=== PATIENT | female | born 1945 | race Caucasian/White ===

== ENCOUNTER 2021-09-29 11:40 | Inpatient (IN) | payer MEDICARE, OTHER ==
[~2021-09-29] VITALS: Ht 167.6 cm; Wt 68.7 kg
[2021-09-29] MEDS ORDERED: DESVENLAFAXINE100 M3 PO (11:55)
[2021-09-29] MEDS ORDERED: PROP10 PO (11:56)
[2021-09-29] MEDS ORDERED: QUETIAPINE FUMA50 M8 PO (11:56)
[2021-09-29] MEDS ORDERED: PREGABALIN50 MG PO (11:56)
[2021-09-29] MEDS ORDERED: LOSA25 (11:56)
[2021-09-29 11:59] LABS: PO2 Arterial 78.1 mmHg (80-100); pH Blood Arterial 7.51 (7.35-7.45)
[2021-09-29 12:05] LABS: Calcium, Ionized (POC) 1.01 mmol/L (1.10-1.46); Chloride (POC) 89 mmol/L (98-108); Creatinine (POC) 2.2 mg/dL (0.6-1.0); Glucose (ISTAT POC) 136 mg/dL (70-99); Hemoglobin (POC) 15.3 g/dL (12.0-16.0); Potassium (POC) 3.8 mmol/L (3.5-5.5); Sodium (POC) 130 mmol/L (135-148); Total CO2 (POC) 30 mmol/L (21-32)
[2021-09-29 12:15] LABS: BASOPHILS ABSOLUTE AUTO 0.05 K/mm3 (0.00-0.23); BASOPHILS PERCENT AUTO 2 % (0-2); Hematocrit 43.9 % (33.0-51.0); Hemoglobin 14.7 g/dL (11.5-16.0); LYMPHOCYTES ABSOLUTE AUTO 0.56 K/mm3 (0.84-5.20); LYMPHOCYTES PERCENT AUTO 20 % (21-46); MONOCYTES ABSOLUTE AUTO 0.23 K/mm3 (0.16-1.47); MONOCYTES PERCENT AUTO 8 % (4-13); Mean Corpuscular HGB 31.5 pg (26.0-34.0); Mean Corpuscular HGB Conc 33.5 g/dL (31.5-36.5); Mean Corpuscular Volume 94 fL (80-100); Mean Platelet Volume 10.6 fL (9.1-12.4); Platelet Count 275 K/mm3 (150-400); RDW Coefficient Variation 13.1 % (11.7-14.2); RDW Standard Deviation 45.2 fL (35.1-46.3); Red Blood Cell Count 4.66 M/mm3 (3.80-5.20); White Blood Cell Count 2.79 K/mm3 (4.00-11.30)
[2021-09-29 12:24] LABS: EOSINOPHILS PERCENT AUTO 0 % (0-6); IMMATURE GRAN ABSOLUTE AUTO 0.02 K/mm3 (0.00-0.10); IMMATURE GRAN PERCENT AUTO 1 % (0-1); NEUTROPHILS ABSOLUTE AUTO 1.93 K/mm3 (1.96-9.15); NEUTROPHILS PERCENT AUTO 69 % (41-73)
[2021-09-29 12:34] LABS: Albumin, Blood 3.2 g/dL (3.4-5.0); Albumin/Globulin Ratio 0.7 (0.8-1.8); Calcium, Blood 9.7 mg/dL (8.5-10.1); Creatinine, Blood 1.91 mg/dL (0.40-1.00); Globulin, Blood 4.4 g/dL (2.2-4.0); Potassium, Blood 3.8 mmol/L (3.5-5.5); Total Protein, Blood 7.6 g/dL (6.4-8.2)
[2021-09-29 13:04] LABS: BAND PERCENT MAN 35 % (0-8); BASOPHILS PERCENT MAN 0 % (0-2); EOSINOPHILS ABSOLUTE MAN 0.02 K/mm3 (0.00-0.68); EOSINOPHILS PERCENT MAN 1 % (0-6); LYMPHOCYTES ABSOLUTE MAN 0.66 K/mm3 (0.84-5.20); LYMPHOCYTES PERCENT MAN 24 % (21-46); MONOCYTES ABSOLUTE MAN 0.16 K/mm3 (0.16-1.47); MONOCYTES PERCENT MAN 6 % (4-13); MYELOCYTE ABSOLUTE MAN 0.13 K/mm3 (0.00-0.00); MYELOCYTE PERCENT MAN 5 % (0-0); NEUTROPHILS ABSOLUTE MAN 1.78 K/mm3 (1.96-9.15); SEG NEUTROPHILS PERCENT MAN 29 % (41-73); TOTAL CELLS COUNTED 100
[2021-09-29 14:20] LABS: Influenza A, PCR NEGATIVE (NEGATIVE); Influenza B, PCR NEGATIVE (NEGATIVE); Resp Syncytial Virus, PCR NEGATIVE (NEGATIVE); SARS-Cov-2 (COVID-19) PCR, MMC NEGATIVE (NEGATIVE)
[2021-09-29 15:44] LABS: International Normalized Ratio 1.07; Prothrombin Time Results 11.2 Sec (9.7-11.5)
--- NOTE | 2021-09-29 18:03 | NUR ---
Telephone report received from Radha ALLISON. Anticipate arrival of pt from ED to PCU 14 shortly.
--- NOTE | 2021-09-29 18:59 | NUR ---
PATIENT BEING TRANSPORTED TO SURGERY COMING ONTO SHIFT.
--- NOTE | 2021-09-29 19:03 | NUR ---
PT arrived from the ED, incontinent of large amount of brown liquid stool. She is alert and oriented but appears sleepy. Her sister Xochitl, "Lisa" is at the bedside. Vital signs taken,98.5 tympanic temperature, sinus rhythm at 91 bpm, RR 28/minute and blood pressure 96/47 MAP of 60. Spo2 88-90% on 14 l/min oxymizer delivery. Pt has a very weak coarse sounding wet cough. IV fluids were initiated as ordered, Lactated Ringers, and blood pressure improved to 102 systolic. Non-rebreather mask applied over the oxymizer and spo2 improved to 96-97%. Jose D Galan RN arrived from surgery to take the pt to the ED.
--- NOTE | 2021-09-29 22:15 | NUR ---
ASSESSMENT/ASSUMED CARE PT ARRIVED FROM PACU VIA BED. STAFF TRANSFERED OVER TO ICU BED WITH SLIDER SHEET. PT AWAKE, DENIES PAIN. ASSISTING WITH TURNING. LUNGS CLEAR BUT DECREASED ON 10 LITER VIA NRB. CHANGED PT OVER TO OXMIZER AND DECREASED DOWN TO 8 LITERS. MONITOR TO KEEP SPO2 GREATER THAN 90%. ENCOURAGED PT TO C&DB, EXPLAINED SPLINTING TO ABD WITH PILLOW. PT DENIES SOB. HEART RATE REGULAR. BP HYPOTENSIVE WILL START LEVOPHED. PT ON LR AT 100 ML/HR VIA LEFT AC IV. BT HYPOACTIVE. ABD SOFT AND NONTENDER. DENIES N/V. NG TO LIS WITH GREEN LIQUID DRAINING. ABD WITH 2 GUAZE DRSG TO MIDLINE UPPER ABD AND MIDLINE LOWER ABD. BOTH CD&I. DE LEON CATH PATENT DRAINING DARK MEGHAN URINE. IV 22G TO RIGHT WRIST SALINE LOCKED, SITE CLEAR, FLUSHED WITHOUT DIFFICULTY. IV 20G TO LEFT AC WITH LR AT 100 ML/HR, SITE CLEAR.
[2021-09-30 03:54] LABS: Hematocrit 38.3 % (33.0-51.0); Mean Corpuscular HGB 32.3 pg (26.0-34.0); Mean Corpuscular HGB Conc 33.9 g/dL (31.5-36.5); Mean Corpuscular Volume 95 fL (80-100); Mean Platelet Volume 10.4 fL (9.1-12.4); Platelet Count 204 K/mm3 (150-400); RDW Coefficient Variation 13.4 % (11.7-14.2); RDW Standard Deviation 47.2 fL (35.1-46.3); Red Blood Cell Count 4.03 M/mm3 (3.80-5.20)
[2021-09-30 03:58] LABS: Bicarbonate Venous 28.1 mmol/L (24.0-30.0); PCO2 Venous 49.7 mmHg (38-42); PO2 Venous 36.3 mmHg (38-42)
[2021-09-30 04:18] LABS: Albumin, Blood 2.5 g/dL (3.4-5.0); Albumin/Globulin Ratio 0.7 (0.8-1.8); Bilirubin, Total 0.6 mg/dL (0.1-1.0); Bun/Creatinine Ratio 38.5 (12.0-20.0); Calcium, Blood 8.6 mg/dL (8.5-10.1); Creatinine, Blood 1.43 mg/dL (0.40-1.00); Globulin, Blood 3.8 g/dL (2.2-4.0); Potassium, Blood 3.4 mmol/L (3.5-5.5); Total Protein, Blood 6.3 g/dL (6.4-8.2)
[2021-09-30 04:25] LABS: BAND PERCENT MAN 50 % (0-8); BASOPHILS PERCENT MAN 0 % (0-2); EOSINOPHILS PERCENT MAN 0 % (0-6); LYMPHOCYTES ABSOLUTE MAN 0.55 K/mm3 (0.84-5.20); LYMPHOCYTES PERCENT MAN 5 % (21-46); METAMYELOCYTE ABSOLUTE MAN 0.66 K/mm3 (0.00-0.00); METAMYELOCYTE PERCENT MAN 6 % (0-0); MONOCYTES ABSOLUTE MAN 0.44 K/mm3 (0.16-1.47); MONOCYTES PERCENT MAN 4 % (4-13); MYELOCYTE ABSOLUTE MAN 0.33 K/mm3 (0.00-0.00); MYELOCYTE PERCENT MAN 3 % (0-0); SEG NEUTROPHILS PERCENT MAN 32 % (41-73); TOTAL CELLS COUNTED 100
--- NOTE | 2021-09-30 05:30 | NUR ---
SHIFT SUMMARY PT RESTING QUIETLY. O2 REQUIREMENTS DOWN DURING THE NIGHT FROM 10 LITERS OXMIZER TO 4 LITER VIA N/C. DENIES SOB. ENCOURAGED TO USE IS AND TO DO COUGHING AND DEEP BREATHING WHILE SPLINTING ABD. PT DENIES PAIN OR DISCOMFORT. HEART RATE REGULAR. PT HAS BEEN WEANED OFF LEVOPHED, MONITOR TO KEEP MAP GREATER THAN 65. BT HYPOACTIVE. NO N/V. NG TO LIS WITH GREEN BILE OUTPUT. DE LEON CATH PATENT, URINE IS ACCOUNTANT CERTIFIED PUBLIC THIS AM. PT TURNING Q2HR. POSSIBLE STATUS CHANGE TODAY. REPORT TO ON COMING NURSE.
--- NOTE | 2021-09-30 08:07 | NUR ---
ASSUMED PT CARE. PT A/OX4, CALM, DENIES PAIN OR SOB. VSS. LUNGS CLEAR/DIM IN BASES. REINFORCED TEACHING ON IMPORTANCE OF DEEP BREATH/COUGHING WITH ABD SPLINT, USING IS, ETC TO OPTIMIZE LUNG HEALTH. ABD SOFT, 2 LAP SITES CDI, BT HYPOACTIVE. MD CUEVAS IN TO SEE PT. NGT DC PER ORDER. BEDSIDE SWALLOW, PT PASSED WITHOUT ISSUE.
--- NOTE | 2021-09-30 10:57 | NUR ---
DISCUSSED WITH MD KINSEY THAT PT REPORTS HAVING TO STRAIN TO HAVE BM, AND REPORTS THAT SHE DIGITALLY DISIMPACTS HERSELF. REQUEST FOR STOOL SOFTENERS TO BE ADDED TO MEDICATION REGIMEN. MD STATES PT OK TO TRANSFER TO SURGICAL FLOOR, ORDERS UPDATED.
--- NOTE | 2021-09-30 11:24 | NUR ---
PT TO TRANSFER TO SURGICAL UNIT. REPORT GIVEN TO FNP WHO WILL BE RECEIVING PT.
--- NOTE | 2021-09-30 13:56 | NUR ---
PT ASSISTED UP TO CHAIR FOR LUNCH WITH FWW AND 2 PERSON ASSIST, TOLERATED WELL. PT TAKEN TO SURGICAL FLOOR AT 1355 VIA WC. VSS.
--- NOTE | 2021-09-30 16:33 | NUR ---
PT WAS ALERT AND ORIENTED ON ARRIVAL. SHE IS A 1-2 PERSON ASSIST. PT WAS ON 3 L OF OXYGEN PER NASAL CANNULA AND HAD DE LEON CATHETER IN PLACE. HEARING AID WAS WITH PT, BUT SHE WAS NOT WEARING IT.
--- NOTE | 2021-09-30 17:50 | NUR ---
SHIFT SUMMARY PT ARRIVED ALERT AND ORIENTED WITH 3 L OF OXYGEN PER NASAL CANNULA AND A DE LEON CATHETER. SHE IS A 1-2 PERSON ASSIST. PT SHOULD BE WEARING HER HEARING AID BUT STATES THAT HER SISTER TOOK IT HOME TO REPLACE IT WITH NEW BATTERIES AND WILL BRING IT BACK TOMORROW. PT HAD A BOWEL MOVEMENT THAT PRODUCED LOOSE AND WATERY STOOLS. SOME STOOL GOT ON THE DRESSING ON THE RIGHT LOWER ABDOMEN/GROIN AREA, AND THE DRESSING WAS REPLACED.
--- NOTE | 2021-10-01 04:18 | NUR ---
SHIFT SUMMARY POD1 EX LAP W/HERNIA REPAIR. 2X INCISIONS WITH GAUZE AND TAPE, C/D/I. VITAL SIGNS STABLE. TOLERATING CLEAR LIQ DIET. DE LEON PATENT DRAINING CLEAR YELLOW URINE. BOWEL MOVEMENT LAST SHIFT AND PASSING FLATUS. WILL REPORT TO ONCOMING RN.
[2021-10-01 04:47] LABS: Hematocrit 31.9 % (33.0-51.0); Hemoglobin 10.8 g/dL (11.5-16.0); LYMPHOCYTES ABSOLUTE AUTO 0.75 K/mm3 (0.84-5.20); LYMPHOCYTES PERCENT AUTO 4 % (21-46); MONOCYTES ABSOLUTE AUTO 1.02 K/mm3 (0.16-1.47); MONOCYTES PERCENT AUTO 6 % (4-13); Mean Corpuscular HGB 31.6 pg (26.0-34.0); Mean Corpuscular HGB Conc 33.9 g/dL (31.5-36.5); Mean Corpuscular Volume 93 fL (80-100); Mean Platelet Volume 10.6 fL (9.1-12.4); NRBC ABSOLUTE 0.02 K/mm3 (0.00-0.02); NRBC Auto 0.1 /100 WBC (0.0-0.2); Platelet Count 187 K/mm3 (150-400); RDW Coefficient Variation 13.6 % (11.7-14.2); RDW Standard Deviation 47.2 fL (35.1-46.3); Red Blood Cell Count 3.42 M/mm3 (3.80-5.20); White Blood Cell Count 17.41 K/mm3 (4.00-11.30)
[2021-10-01 04:52] LABS: BASOPHILS ABSOLUTE AUTO 0.01 K/mm3 (0.00-0.23); BASOPHILS PERCENT AUTO 0 % (0-2); EOSINOPHILS ABSOLUTE AUTO 0.06 K/mm3 (0.00-0.68); EOSINOPHILS PERCENT AUTO 0 % (0-6); IMMATURE GRAN ABSOLUTE AUTO 0.64 K/mm3 (0.00-0.10); IMMATURE GRAN PERCENT AUTO 4 % (0-1); NEUTROPHILS ABSOLUTE AUTO 14.93 K/mm3 (1.96-9.15); NEUTROPHILS PERCENT AUTO 86 % (41-73)
[2021-10-01 05:08] LABS: Alanine Aminotransfer (ALT/SGP 16 U/L (12-78); Albumin/Globulin Ratio 0.6 (0.8-1.8); Alk Phos 80 U/L (50-136); Anion Gap 5 mmol/L (6-16); Aspartate Aminotrans (AST/SGOT 16 U/L (12-37); Bilirubin, Total 0.4 mg/dL (0.1-1.0); Blood Urea Nitrogen 31 mg/dL (8-24); Bun/Creatinine Ratio 34.4 (12.0-20.0); CO2, Blood 30 mmol/L (21-32); Calcium, Blood 8.2 mg/dL (8.5-10.1); Chloride, Blood 100 mmol/L (98-108); Globulin, Blood 3.6 g/dL (2.2-4.0); Glomerular Filtration Rate >60 (60-); Glucose, Blood 111 mg/dL (70-99); Potassium, Blood 3.3 mmol/L (3.5-5.5); Sodium, Blood 135 mmol/L (136-145); Total Protein, Blood 5.6 g/dL (6.4-8.2)
[2021-10-01 05:32] LABS: BAND PERCENT MAN 12 % (0-8); BASOPHILS PERCENT MAN 0 % (0-2); EOSINOPHILS PERCENT MAN 0 % (0-6); LYMPHOCYTES ABSOLUTE MAN 1.04 K/mm3 (0.84-5.20); LYMPHOCYTES PERCENT MAN 6 % (21-46); MONOCYTES ABSOLUTE MAN 1.21 K/mm3 (0.16-1.47); MONOCYTES PERCENT MAN 7 % (4-13); NEUTROPHILS ABSOLUTE MAN 15.14 K/mm3 (1.96-9.15); SEG NEUTROPHILS PERCENT MAN 75 % (41-73); TOTAL CELLS COUNTED 100
--- NOTE | 2021-10-01 17:54 | NUR ---
SHIFT SUMMARY PT A&OX4, VSS/2LNC, DENIES PAIN, DENIES N&V, NELIDA FULL LIQUID DIET, DE LEON OUT AT 1550/AWAITING POST REMOVAL VOID. POD2 EXP LAP/HERNIA REP, 2 GAUZE/TAPE DRY INTACT, MILD ABD DISTENSION, PASSING FLATUS & BMS. P.T. EVAL'D; UP TO CHAIR T/O SHIFT; STAND/PIVOT W/FWW & GB TO BED/CHAIR. DEEP BREATHING AND I.S. EDU/ENC/DEMONSTRATED. WILL REPORT TO NEXT RN.
--- NOTE | 2021-10-01 20:02 | NUR ---
CALLED DR. WATERS. PT WAS HAVING A TACHY CARDIAC EPISODE AT 140'S FOR ATLEAST 20 MINUTES. EKG WAS DONE. SINUS TACH TO SUPRAVENTRICULAR TACHY FOR 20 SECS THEN CONVERTED BACK TO NORMAL SINUS RHYTHYM WITH NON SPECIFIC ST ABNORMALITY. PER DR. WATERS, HE WILL WRITE ORDERS. PT DENIES CHEST PAIN. COMFORTABLE IN BED. NEW IV IS BEING PLACED AT THE MOMENT. OLD IV IS NOT PATENT. LEONOR ALLISON - CLINICAL COORDINATOR IN ROOM WITH PT.
[2021-10-02 05:18] LABS: Hematocrit 29.8 % (33.0-51.0); Hemoglobin 10.1 g/dL (11.5-16.0); Mean Corpuscular HGB 31.9 pg (26.0-34.0); Mean Corpuscular HGB Conc 33.9 g/dL (31.5-36.5); Mean Corpuscular Volume 94 fL (80-100); Platelet Count 190 K/mm3 (150-400); RDW Coefficient Variation 13.6 % (11.7-14.2); RDW Standard Deviation 47.1 fL (35.1-46.3); Red Blood Cell Count 3.17 M/mm3 (3.80-5.20); White Blood Cell Count 19.99 K/mm3 (4.00-11.30)
[2021-10-02 05:41] LABS: Alanine Aminotransfer (ALT/SGP 16 U/L (12-78); Albumin, Blood 1.8 g/dL (3.4-5.0); Albumin/Globulin Ratio 0.6 (0.8-1.8); Alk Phos 104 U/L (50-136); Anion Gap 6 mmol/L (6-16); Aspartate Aminotrans (AST/SGOT 16 U/L (12-37); Bilirubin, Total 0.4 mg/dL (0.1-1.0); Blood Urea Nitrogen 19 mg/dL (8-24); CO2, Blood 29 mmol/L (21-32); Calcium, Blood 7.6 mg/dL (8.5-10.1); Chloride, Blood 100 mmol/L (98-108); Creatinine, Blood 0.76 mg/dL (0.40-1.00); Globulin, Blood 3.1 g/dL (2.2-4.0); Glomerular Filtration Rate >60 (60-); Glucose, Blood 101 mg/dL (70-99); Magnesium, Blood 2.6 mg/dL (1.6-2.4); Sodium, Blood 135 mmol/L (136-145); Total Protein, Blood 4.9 g/dL (6.4-8.2)
--- NOTE | 2021-10-02 06:03 | NUR ---
SHIFT SUMMARY PT ORIENTED X3, APPEARS TO BE DROWSY. PT DENIES PAIN. NO PAIN MEDS GIVEN OVERNIGHT. LUNGS ARE DIMINISHED. ENC DEEP BREATHING/COUGH EXERCISE AND USE OF I/S. PT DENIES CHEST PAIN AND SOB. VSS. PT HAD A TACHY EPISODE INTERMINTENTLY, HAD TO CALL DR. WATERS LAST NIGHT DUE TO HR ON 140'S. EKG WAS TAKEN. TELE IN PLACED, AFIB ON 80'S. PT HAD 1 LOOSE BM LAST NIGHT. TRANSFERED IN BSC WITH FWW AND GB. PT WEARS CPAP AT SLEEP, BUT FELT UNCOMFORTABLE THIS MORNING, PREFER TO USE N/C O2. PT ON 3L AT SLEEP SATURATING AT 91%-95%. NEW IV PLACED ON R ARM. CALL LIGHT WITHIN REACH. WILL PROVIDE REPORT TO ONCOMING NURSE.
[2021-10-02 06:53] LABS: BAND PERCENT MAN 20 % (0-8); BASOPHILS PERCENT MAN 0 % (0-2); EOSINOPHILS ABSOLUTE MAN 0.19 K/mm3 (0.00-0.68); EOSINOPHILS PERCENT MAN 1 % (0-6); LYMPHOCYTES ABSOLUTE MAN 1.19 K/mm3 (0.84-5.20); LYMPHOCYTES PERCENT MAN 6 % (21-46); MONOCYTES ABSOLUTE MAN 0.99 K/mm3 (0.16-1.47); MONOCYTES PERCENT MAN 5 % (4-13); MYELOCYTE ABSOLUTE MAN 0.19 K/mm3 (0.00-0.00); MYELOCYTE PERCENT MAN 1 % (0-0); NEUTROPHILS ABSOLUTE MAN 17.39 K/mm3 (1.96-9.15); SEG NEUTROPHILS PERCENT MAN 67 % (41-73); TOTAL CELLS COUNTED 100
--- NOTE | 2021-10-02 15:39 | NUR ---
SHIFT SUMMARY PT A&OX3, SLEEPY TODAY, FOLLOWS DIRECTIONS, PLEASANT & COOPERATIVE WITH CARE, [employer] [place] (HEARING AIDS IN CUP AT BEDSIDE. POD3 EXP LAP/HERNIA REPAIR, DRESSINGS DRY/INTACT. DENIES PAIN. DENIES N&V, NELIDA PO. BIOX ON, 3LNC, TELE ST@103 BPM. STAND PIVOT WITH SBA/FWW/GB TO BSC/CHAIR/BED. ATTENDS ON FOR LEAKAGE OF BOWEL AND BLADDER, USES BEDSIDE COMMODE, MULTIPLE LOOSE BM TODAY. WILL REPORT TO NEXT RN.
[2021-10-03 04:29] LABS: Hematocrit 31.2 % (33.0-51.0); Hemoglobin 10.3 g/dL (11.5-16.0); Mean Corpuscular HGB 31.2 pg (26.0-34.0); Mean Corpuscular Volume 95 fL (80-100); Mean Platelet Volume 10.5 fL (9.1-12.4); Platelet Count 193 K/mm3 (150-400); RDW Coefficient Variation 13.9 % (11.7-14.2); RDW Standard Deviation 48.8 fL (35.1-46.3); White Blood Cell Count 16.87 K/mm3 (4.00-11.30)
[2021-10-03 04:48] LABS: Alanine Aminotransfer (ALT/SGP 20 U/L (12-78); Albumin, Blood 1.9 g/dL (3.4-5.0); Albumin/Globulin Ratio 0.5 (0.8-1.8); Alk Phos 111 U/L (50-136); Anion Gap 6 mmol/L (6-16); Aspartate Aminotrans (AST/SGOT 21 U/L (12-37); Bilirubin, Total 0.5 mg/dL (0.1-1.0); Blood Urea Nitrogen 16 mg/dL (8-24); Bun/Creatinine Ratio 23.3 (12.0-20.0); CO2, Blood 28 mmol/L (21-32); Calcium, Blood 8.1 mg/dL (8.5-10.1); Chloride, Blood 101 mmol/L (98-108); Creatinine, Blood 0.69 mg/dL (0.40-1.00); Globulin, Blood 3.5 g/dL (2.2-4.0); Glomerular Filtration Rate >60 (60-); Glucose, Blood 108 mg/dL (70-99); Potassium, Blood 3.8 mmol/L (3.5-5.5); Sodium, Blood 135 mmol/L (136-145); Total Protein, Blood 5.4 g/dL (6.4-8.2)
--- NOTE | 2021-10-03 05:18 | NUR ---
SHIFT SUMMARY POD4 HERNIA REPAIR FEMORAL/INCARCERATED WITH DR. CUEVAS. PT STILL APPEARS LETHARGIC BUT IT HAS SOME MILD IMPROVEMENT COMPARED THE NIGHT BEFORE LAST NIGHT. I HAD ENCOURAGE HER TO OPEN HER EYES DURING A CONVERSATION LAST NIGHT. THIS MORNING SHE HAD TO GET UP IN THE BSC. TOLERATING THE TRANSFER WITH 1 SBA. APPEARS TO BE WEAK. SHE WAS ABLE TO MAKE SENSIBLE CONVERSATION WITH EYES OPEN COUPLE COUPLE TIMES OVERNIGHT. I ENCOURAGE HER TO TAKE DEEP BREATHS, COUGHING AND I/S, EXPLAINED AND EDUCATE ABOUT RISK FOR WORSENING PNEUMONIA. PT WAS RECEPTIVE BUT SOMETIMES WOULD REFUSE TO COOPERATE STATING "IF I HAVE TO DO IT AGAIN, IT HURTS." SHE HAD A FULL BED BATH.
[2021-10-03 05:51] LABS: BAND PERCENT MAN 12 % (0-8); BASOPHILS PERCENT MAN 0 % (0-2); EOSINOPHILS ABSOLUTE MAN 1.01 K/mm3 (0.00-0.68); EOSINOPHILS PERCENT MAN 6 % (0-6); LYMPHOCYTES ABSOLUTE MAN 0.33 K/mm3 (0.84-5.20); LYMPHOCYTES PERCENT MAN 2 % (21-46); METAMYELOCYTE ABSOLUTE MAN 0.16 K/mm3 (0.00-0.00); METAMYELOCYTE PERCENT MAN 1 % (0-0); MONOCYTES ABSOLUTE MAN 0.67 K/mm3 (0.16-1.47); MONOCYTES PERCENT MAN 4 % (4-13); MYELOCYTE ABSOLUTE MAN 0.33 K/mm3 (0.00-0.00); MYELOCYTE PERCENT MAN 2 % (0-0); NEUTROPHILS ABSOLUTE MAN 14.33 K/mm3 (1.96-9.15); SEG NEUTROPHILS PERCENT MAN 73 % (41-73); TOTAL CELLS COUNTED 100
--- NOTE | 2021-10-03 10:43 | NUR ---
PRODUCTIVE COUGH PT HAS WEAK COUGH, THICK BROWNISH SPUTUM
--- NOTE | 2021-10-03 11:43 | NUR ---
PT APPEARS CONFUSED AT TIMES WHEN IN ROOM, PT STATED "THE PHOTOS ARE NOT GOOD" OUT OF CONTEXT TO CONVERSATION. BUT WHEN ASKED IF KNEW WHERE SHE WAS, STATED "I'M IN THE HOSPITAL, SITTING ON THE POT" (PT ON BSC AT TIME). USING TAB ALARM FOR SAFETY. CALL LIGHT IN REACH. PT SITTING UP IN RECLINER.
--- NOTE | 2021-10-03 14:20 | NUR ---
FAMILY MEMBER IN TO VISIT
--- NOTE | 2021-10-03 15:42 | NUR ---
ADDED HUMIDIFICATION TO 02 TUBING. PT HAD SLIGHT BLOODY NOSE. ADDED HUMIDIFICATION TO 02 TUBING.
--- NOTE | 2021-10-03 17:52 | NUR ---
SUMMARY PT DESATS WHEN REMOVES O2 TO MID-HIGH 80S. PLACED HUMIDIFICATION TO 02 FOR COMFORT. PT HAD SLIGHT BLOODY NOSE. PT CONFUSED AT TIMES, SEEMS MORE ORIENTED THIS AFTERNOON/EVENING AND SLIGHTLY LESS LETHARGIC. INCONTINENT OF URINE AND STOOL AT TIMES. ADMINISTERED MEDS PER ORDERS. CALL LIGHT IN REACH, PT USES APPROPRIATELY. BED ALARM ON.
--- NOTE | 2021-10-03 19:05 | NUR ---
REPORT GIVEN TO ONCOMING SHIFT.
[2021-10-04 05:33] LABS: BASOPHILS ABSOLUTE AUTO 0.04 K/mm3 (0.00-0.23); BASOPHILS PERCENT AUTO 0 % (0-2); EOSINOPHILS PERCENT AUTO 2 % (0-6); Hematocrit 32.4 % (33.0-51.0); Hemoglobin 10.8 g/dL (11.5-16.0); IMMATURE GRAN ABSOLUTE AUTO 0.75 K/mm3 (0.00-0.10); IMMATURE GRAN PERCENT AUTO 5 % (0-1); LYMPHOCYTES PERCENT AUTO 5 % (21-46); MONOCYTES ABSOLUTE AUTO 1.07 K/mm3 (0.16-1.47); MONOCYTES PERCENT AUTO 7 % (4-13); Mean Corpuscular HGB 30.9 pg (26.0-34.0); Mean Corpuscular HGB Conc 33.3 g/dL (31.5-36.5); Mean Corpuscular Volume 93 fL (80-100); Mean Platelet Volume 10.4 fL (9.1-12.4); NEUTROPHILS ABSOLUTE AUTO 11.94 K/mm3 (1.96-9.15); NEUTROPHILS PERCENT AUTO 80 % (41-73); Platelet Count 221 K/mm3 (150-400); RDW Coefficient Variation 13.7 % (11.7-14.2); RDW Standard Deviation 46.6 fL (35.1-46.3); Red Blood Cell Count 3.49 M/mm3 (3.80-5.20)
--- NOTE | 2021-10-04 06:12 | NUR ---
PT IS A/OX1-2. CONFUSED. [place]. BED ALARM ON. NO EVENTS OVERNIGHT. TOLERATING FL DIET WELL. DENIED ANY N/V. ABD SOFTLY DISTENDED, DENIED TENDERNESS. S/P LAP REPAIR W/MESH FOR SBO W/INCARCERTED FEMORAL HERNIA. LAP SITES CDI. TELE: SR. CPAP APPLIED PER RT, BUT PT REFUSED TO KEEP CPAP ON. OXYGEN AT 3L PER NC. INS/EXP WHEEZING NOTED. HAS PRODUCTIVE COUGH W/YELLOW-BROWN SPUTUM. CONT PULSE ON, PLACED ON TOE.
[2021-10-04 06:37] LABS: Anion Gap 9 mmol/L (6-16); Blood Urea Nitrogen 10 mg/dL (8-24); CO2, Blood 29 mmol/L (21-32); Calcium, Blood 8.4 mg/dL (8.5-10.1); Chloride, Blood 97 mmol/L (98-108); Creatinine, Blood 0.67 mg/dL (0.40-1.00); Glomerular Filtration Rate >60 (60-); Glucose, Blood 93 mg/dL (70-99); Potassium, Blood 3.5 mmol/L (3.5-5.5); Sodium, Blood 135 mmol/L (136-145)
--- NOTE | 2021-10-04 09:30 | NUR ---
therapy in with patient
--- NOTE | 2021-10-04 10:29 | NUR ---
PT HAD 11 BEAT RUN SVT PER TELE THEN RETURNED TO 80S. ADMINISTERED PROPANOLOL AND POTASSIUM PER ORDERS. NOTIFIED DR KINSEY. NO OTHER ORDERS.
[2021-10-04 11:42] LABS: Influenza A, PCR NEGATIVE (NEGATIVE); Influenza B, PCR NEGATIVE (NEGATIVE); Resp Syncytial Virus, PCR NEGATIVE (NEGATIVE); SARS-Cov-2 (COVID-19) PCR, MMC NEGATIVE (NEGATIVE)
--- NOTE | 2021-10-04 15:34 | NUR ---
REPORT CALLED TO IFTIKHAR AT [facility].
--- NOTE | 2021-10-04 16:36 | NUR ---
PT DC'D TO SNF PT'S HEARING AID FOR R EAR MISSING FROM EAR. IT WAS NOTED BY THIS RN TO BE IN EAR YESTERDAY. CHECKED ROOM AND LINENS BUT COULD NOT LOCATE. LM FOR PT ADVOCATE. PT LEFT UNIT IN WC ON 02 W REST OF POSSESSIONS W/TRANSPORT.
== END 2021-10-04 16:38 | DRG 853 ==
LOC: ER 11:40 → ERHOLD 16:32 → ICUE 16:32 → PCU 18:18 → ICUE 21:43 → SURS 09-30 13:55
PROVIDERS: Internal Medicine; Student in an Organized Health Care Education/Training Program; Surgery; ADMIT Family Medicine
PROC: 3E033XZ Introduction of Vasopressor into Peripheral Vein, Percutaneous Approach (ICD-10-PCS; 2021-09-29)
PROC: 3E02340 Introduction of Influenza Vaccine into Muscle, Percutaneous Approach (ICD-10-PCS; 2021-09-29)
PROC: 0YU70JZ Supplement Right Femoral Region with Synthetic Substitute, Open Approach (ICD-10-PCS; principal; 2021-09-29 19:30)
PROC: 0WJG4ZZ Inspection of Peritoneal Cavity, Percutaneous Endoscopic Approach (ICD-10-PCS; 2021-09-29 19:30)
DX: A41.51 Sepsis due to Escherichia coli [E. coli] (principal); R65.21 Severe sepsis with septic shock; J69.0 Pneumonitis due to inhalation of food and vomit; J18.9 Pneumonia, unspecified organism; J96.01 Acute respiratory failure with hypoxia; K56.609 Unspecified intestinal obstruction, unspecified as to partial versus complete obstruction; K41.30 Unilateral femoral hernia, with obstruction, without gangrene, not specified as recurrent; N17.9 Acute kidney failure, unspecified; E87.1 Hypo-osmolality and hyponatremia; E87.2 Acidosis; Z20.822 Contact with and (suspected) exposure to COVID-19; Z23 Encounter for immunization; I48.91 Unspecified atrial fibrillation; F32.9 Major depressive disorder, single episode, unspecified; I10 Essential (primary) hypertension; Z96.651 Presence of right artificial knee joint; Z90.710 Acquired absence of both cervix and uterus; Z98.890 Other specified postprocedural states; Z98.49 Cataract extraction status, unspecified eye; Z79.899 Other long term (current) drug therapy; Z88.2 Allergy status to sulfonamides; Z87.891 Personal history of nicotine dependence; E87.6 Hypokalemia; Z88.1 Allergy status to other antibiotic agents
CPT/HCPCS: 0241U; 36415; 36600; 71045; 74176; 80047; 80048; 80053; 82803; 83605; 83735; 84145; 84443; 84484; 85014; 85025; 85610; 85730; 86850; 86900; 86901; 87040; 87070; 87077; 87186; 87205; 93005; 93010; 93308; 93321; 94660; 94762; 96365; 96367; 97110; 97162; 99285-25; A9270; C1781; C9113; J0295; J0692; J0696; J1100; J1940; J2405; J2704; J3010; J3370; J3475; J3480; J7050; J7060; J7120; J7512

== ENCOUNTER 2024-06-05 10:20 | Day surgery (SDC) | payer OTHER ==
[~2024-06-05] VITALS: Ht 162.6 cm; Wt 136.0 kg
[~2024-06-05 10:20] MED LIST: DESVENLAFAXINE100 M3 PO; LOSA25; Lactated Ringer's 1,000 ML IV ONE; PREGABALIN50 MG PO; PROP10 PO; QUETIAPINE FUMA50 M8 PO; propofoL 50 ML IV ONE
[2024-06-05] MEDS ORDERED: FURO20 (10:41)
[2024-06-05] MEDS ORDERED: XARELTO20 MG (10:41)
[2024-06-05 12:21] VITALS: BP 146/79
[2024-06-05] MEDS ORDERED: Lactated Ringer's 1,000 ML IV ONE (12:40)
== END 2024-06-05 12:25 | disposition home or self-care (01) ==
LOC: ORSCSDS 10:20
PROVIDERS: Internal Medicine Gastroenterology
PROC: 0DJD8ZZ Inspection of Lower Intestinal Tract, Via Natural or Artificial Opening Endoscopic (ICD-10-PCS; principal; 2024-06-05 11:15)
DX: Z12.11 Encounter for screening for malignant neoplasm of colon (principal); I35.1 Nonrheumatic aortic (valve) insufficiency; R06.02 Shortness of breath; K57.30 Diverticulosis of large intestine without perforation or abscess without bleeding; I48.91 Unspecified atrial fibrillation; I34.0 Nonrheumatic mitral (valve) insufficiency; G47.33 Obstructive sleep apnea (adult) (pediatric); Z79.01 Long term (current) use of anticoagulants; Z79.899 Other long term (current) drug therapy
CPT/HCPCS: J2704; J7120

== ENCOUNTER → 2025-07-16 | Outpatient (CLI) | payer OTHER ==
[~2025-07-16] MED LIST changes: +FURO20; -Lactated Ringer's 1,000 ML IV ONE; +XARELTO20 MG; -propofoL 50 ML IV ONE
[2025-07-17 10:26] LABS: Bilirubin, Urine Neg (Neg); Color, Urine Yellow (P-Yellow); Glucose Qualitative, Urine Neg (Neg); Ketones, Urine Neg (Neg); Leukocyte Esterase, Urine Neg (Neg); Protein, Urine Neg (Neg); Specific Gravity, Urine 1.010 (1.003-1.022); Urobilinogen, Urine NORM (Normal)
== END ==
LOC: LAB 14:35 → LAB SHORT 14:35
PROVIDERS: Internal Medicine
DX: N39.0 Urinary tract infection, site not specified (principal)
CPT/HCPCS: 81003